=== PATIENT | male | born 1995 | race Two or more races ===

== ENCOUNTER 2024-10-26 09:01 | Emergency (ER) | payer MEDICAID, OTHER ==
[~2024-10-26] VITALS: Ht 180.3 cm; Wt 89.5 kg
--- NOTE | 2024-10-26 09:20 | ED.PDOC ---
History of Present Illness HPI Comments 28-year-old male transferred from [facility] for orthopedics do from right elbow injury. This visit was from ER to ER. Patient reports the he was skateboarding last night at 0000, when he fell and main unknown in his right arm causing elbow pain. An x-ray of the right elbow was done at [facility], with an impression of moderately displaced comminuted/fragmented fracture involving the olecranon. There is an approximately 2.5 cm proximal retraction of the fracture fragment. There is posterior soft tissue swelling. The joint spaces are preserved. Denies chills, fever, N/V/D, SOB, CP. No other associated symptoms, modifiers, recent injuries or sick contacts present at this time. Chief Complaint: Upper Extremity Time Seen by MD: 09:15 Reviewed Notes: Nurses Notes, Director [employer] Notes, Medications, Allergies Allergies: Coded Allergies: NO KNOWN ALLERGIES (Unverified , 10/26/24) Information Source: Patient, Transfer Record, Emergency Med Personnel Mode of Arrival: EMS Severity: Moderate Timing: Hours Duration: Since onset, Hours Prehospital treatment: None Past Medical History PAST MEDICAL HISTORY: Denies Surgical History: Denies all surgeries Family History Family History: Reviewed,noncontributory to illness, Unknown Social History Smoker: Non-Smoker Alcohol: Denies ETOH Use Drugs: Denies Drug Use Lives In: Home Constitutional: reports: others (Right elbow pain); denies: chills, diaphoresis, fatigue, fever, malaise, sweats, weakness EENTM: denies: blurred vision, double vision, ear bleeding, ear discharge, ear drainage, ear pain, ear ringing, eye pain, eye redness, hearing loss, mouth pain, mouth swelling, nasal discharge, nose bleeding, nose congestion, nose pain, photophobia, tearing, throat pain, throat swelling, voice changes, others Respiratory: denies: cough, hemoptysis, orthopnea, SOB at rest, shortness of breath, SOB with excertion, stridor, wheezing, others Cardiovascular: denies: chest pain, dizzy spells, diaphoresis, Dyspnea on exertion, edema, irregular heart beat, left arm pain, lightheadedness, palpitations, PND, syncope, others Gastrointestinal: denies: abdomen distended, abdominal pain, blood streaked bowels, constipated, diarrhea, dysphagia, difficulty swallowing, hematemesis, melena, nausea, poor appetite, poor fluid intake, rectal bleeding, rectal pain, vomiting, others Genitourinary: denies: burning, dysuria, flank pain, frequency, hematuria, incontinence, penile discharge, penile sore, pain, testicle pain, testicle swelling, urgency, others Neurological: denies: dizziness, fainting, headache, left sided numbness, left sided weakness, numbness, paresthesia, pre-existing deficit, right sided numbness, right sided weakness, seizure, speech problems, tingling, tremors, weakness, others Musculoskeletal: denies: back pain, gout, joint pain, joint swelling, muscle pain, muscle stiffness, neck pain, others Integumetry: denies: bruises, change in color, change in hair/nails, dryness, laceration, lesions, lumps, rash, wounds, others Allergic/Immunocompromised: denies: Difficulty Healing, Frequent Infections, Hives, Itching, others Hematologic/Lymphatic: denies: anemia, blood clots, easy bleeding, easy bruising, swollen glands, others Endocrine: denies: excessive hunger, excessive sweating, excessive thirst, excessive urination, flushing, intolerance to cold, intolerance to heat, unexplained weight gain, unexplained weight loss, others Psychiatric: denies: anxiety, bipolar disorder, depression, hopeless, panic disorder, schizophrenia, sleepless, suicidal, others All Other Systems: Reviewed and Negative Physical Exam General Appearance: Moderate Distress, Normal HEENT: Normal ENT Inspection, Pharynx Normal, TMs Normal Neck: Full Range of Motion, Non-Tender, Normal, Normal Inspection Respiratory: Chest Non-Tender, Lungs Clear, No Accessory Muscle Use, No Respiratory Distress, Normal Breath Sounds Cardiovascular: No Edema, No JVD, No Murmur, No Gallop, Normal Peripheral Pulses, Regular Rate/Rhythm Breast Exam: Deferred Gastrointestinal: No Organomegaly, Non Tender, No Pulsatile Mass, Normal Bowel Sounds, Soft Genitalia: Deferred Pelvic: Deferred Rectal: Deferred Extremities: No calf tenderness, Normal capillary refill, Normal range of motion, Non-tender, No pedal edema, Other (Splinted right arm) Musculoskeletal : Apperance: Normal Neurologic: Alert, 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 Was a procedure done?: No Differential Dx Considerations may include: Elbow fracture X-Ray, Labs, Meds, VS Vital Signs Date Time Temp Pulse Resp B/P (MAP) Pulse Ox O2 Delivery O2 Flow Rate FiO2 10/26/24 10:00 91 17 94 Room Air 10/26/24 10:00 98.5 91 16 122/69 (86) 94 98.5 10/26/24 09:13 98.2 70 16 115/72 (86) 98 98.2 Current Medications Medications (Trade) Dose Ordered Sig/Vandana Route Start Time Stop Time Status Last Admin Acetaminophen/ Hydrocodone Bitart ([place] 10/325MG Tab) 1 tab ONCE ONCE PO 10/26/24 11:30 10/26/24 11:31 DC 10/26/24 11:42 Patient alert. Vitals stable. Status post fall landing on his right elbow. Answering questions. No sign of distress. He does have splint in place. Spoke with orthopedic. Continue monitoring. Orthopedic surgeon stated that the patient can be treated as an outpatient. Explained to the patient. Good pulses. Good skin color. Good color of the nailbed. Not in distress. Gave the number of the orthopedic surgeon office. Splint intact. Was given prescription of Motrin. Was told to follow up with his primary care physician. Was told to come back if there is any problem. Time of 1ST Reevaluation: 09:45 Reevaluation 1ST: Unchanged Patient Education/Counseling: Diagnosis, Treatment, Prognosis Family Education/Counseling: No Family Present Departure 1 Departure Time of Disposition: 11:21 Impression: Primary Impression: Elbow fracture, right Qualified Codes: S42.401A - Unspecified fracture of lower end of right humerus, initial encounter for closed fracture Disposition: 01 HOME / SELF CARE / HOMELESS Condition: Good e-Prescriptions Ibuprofen Micronized (MOTRIN TABLET) 600 Mg Tb 600 MG PO TID PRN for 5 Days, #15 TAB *Black box warning-NSAIDS can increase risk of [place] & hypertension, GI irritation, ulceration, bleed, perferation. Do not use post cardiac surgery. Use short duration/lowest effective dose. Prov: LEMUEL ALVARENGA MD 10/26/24 Discharged With: Self Critical Care Note Critical Care Time?: No Stability Stability form required: No Heart Score Heart Score: Heart Score Response (Comments) Value History N/A 0 EKG N/A 0 Age N/A 0 Risk Factors N/A 0 Troponin N/A 0 Total 0 I personally scribed for LEMUEL ALVARENGA MD ([email or web address]) on 10/26/24 at 09:20. Electronically submitted by Yunier Harris ([email or web address]). LEMUEL ALVARENGA MD October 26, 2024 09:20
[2024-10-26] MEDS: HYDROcodone-ACET 10/325MG TAB PO ONE (11:42)
--- NOTE | 2024-10-26 12:03 | DVH ---
XY R ELBOW 3 VIEW XRAY, INDICATION: fx TECHNICAL DATA: Frontal, oblique and lateral views were obtained of the right elbow. COMPARISON: None FINDINGS: Displaced olecranon fracture. Joint spaces are maintained. Alignment at the joint is anatomic. Soft t issues are within normal limits. No joint effusion is demonstrated. IMPRESSION: Displaced olecranon fracture.
[2024-10-26] MEDS ORDERED: IBU600T PO (12:42)
[2024-10-26 12:47] VITALS: BP 121/63; PULSE 67; RESP 16; TEMP 97.7; O2SAT 96
== END 2024-10-26 12:49 | disposition home or self-care (01) ==
LOC: ER 09:01 → EDBD 09:01 → ER 12:48
DX: S52.021A Displaced fracture of olecranon process without intraarticular extension of right ulna, initial encounter for closed fracture (principal); V00.131A Fall from skateboard, initial encounter; Y93.51 Activity, roller skating (inline) and skateboarding; Y92.89 Other specified places as the place of occurrence of the external cause; Y99.8 Other external cause status
CPT/HCPCS: 29105; 73080

== ENCOUNTER 2024-11-04 22:59 | Inpatient (IN) | payer OTHER, MEDICAID ==
[~2024-11-04] VITALS: Ht 180.3 cm; Wt 91.6 kg
[~2024-11-04 22:59] MED LIST: IBU600T PO
[2024-11-05 00:38] LABS: Basophils # (auto) 0 10 ^3/uL (0-0.2); Basophils % (auto) 0.6 % (0.0-2.0); Eosinophils # (auto) 0.6 10 ^3/uL (0-0.8); Eosinophils % (auto) 7.1 % (0.0-7.0); Hematocrit 41.9 % (41.0-53.0); Hemoglobin 14.2 g/dL (13.5-17.5); Lymphocytes # (auto) 3.3 10 ^3/uL (0.4-5.4); Lymphocytes % (auto) 38.6 % (10.0-50.0); Mean Corpuscular Hemoglobin 30.1 pg (28.0-32.0); Mean Corpuscular Hgb Conc. 33.8 g/dL (32.0-36.0); Mean Corpuscular Volume 89.2 fL (80.0-100.0); Monocytes # (auto) 0.7 10 ^3/uL (0-1.3); Monocytes % (auto) 8.4 % (0.0-12.0); Neutrophils # (auto) 3.9 10 ^3/uL (1.6-8.6); Neutrophils % (auto) 45.3 % (37.0-80.0); Nucleated Red Blood Cells % 0.2 %; Platelet Count (auto) 288 10^3/uL (140-450); Red Cell Distribution Width 13.2 % (11.8-14.3); White Blood Cell 8.5 10^3/uL (4.4-10.8)
[2024-11-05 00:46] LABS: Anion Gap 7 (5-15); Carbon Dioxide 28 mmol/L (20-31); Chloride 106 mmol/L (98-107); Sodium 141 mmol/L (136-145)
[2024-11-05 00:47] LABS: Calcium 9.2 mg/dL (8.7-10.4)
[2024-11-05 00:52] LABS: BUN/Creatinine Ratio 11.2 (10.0-20.0); Blood Urea Nitrogen 11 mg/dL (9-23); Glucose 102 mg/dL (74-106)
[2024-11-05 00:56] LABS: INR 1.08 (0.9-1.15); Partial Thromboplastin Time 25.9 SEC (24.5-34.5); Prothrombin Time 11.4 sec (9.3-11.8)
[2024-11-05 01:15] LABS: Urine Bacteria None Seen /hpf (None Seen)
[2024-11-05 01:45] LABS: Urine Blood Negative /uL (Negative); Urine Clarity Clear (Clear); Urine Color Yellow (Yellow); Urine Mucus FEW (None Seen); Urine Protein, UAD Negative (Negative); Urine Specific Gravity 1.027 (1.001-1.035); Urine Squamous Epithelial Cell None Seen /hpf (<5); Urine Urobilinogen 2 mg/dL (Negative); Urine WBC 1 /HPF (0-3); Urine pH 5.5 (5.0-9.0)
--- NOTE | 2024-11-05 01:48 | ED.PDOC ---
Musculoskeletal HPI Comments 28-year-old male brought in by family, referred by Dr. Parson to be admitted for surgery due to a displaced right olecranon fracture sustained 2 weeks ago while skateboarding. Patient is currently in a right upper extremity cast and denies pain. He denies any other symptoms. He was told Dr. Parson we will be performing the surgery this morning. Chief Complaint: Upper Extremity Time Seen by MD: 00:19 Reviewed Notes: Nurses Notes Allergies: Coded Allergies: NO KNOWN ALLERGIES (Unverified , 10/26/24) Home Meds Active Scripts Ibuprofen Micronized (MOTRIN TABLET) 600 Mg Tb, 600 MG PO TID PRN for 5 Days, #15 TAB *Black box warning-NSAIDS can increase risk of [place] & hypertension, GI irritation, ulceration, bleed, perferation. Do not use post cardiac surgery. Use short duration/lowest effective dose. Prov:LEMUEL ALVARENGA MD 10/26/24 Information Source: Patient Mode of Arrival: Ambulatory Past Medical History PAST MEDICAL HISTORY: Denies Surgical History: Denies all surgeries Family History Family History: Reviewed,noncontributory to illness, Unknown Social History Smoker: Non-Smoker Alcohol: Denies ETOH Use Drugs: Denies Drug Use Lives In: Home All Other Systems: Reviewed and Negative (Comprehensive systems review obtained and negative except for what is stated in the HPI.) Physical Exam General Appearance: No Apparent Distress HEENT: Other (Pupils and face symmetric. Moist mucous membranes.) Neck: Full Range of Motion, Normal Inspection Respiratory: Lungs Clear, No Accessory Muscle Use, No Respiratory Distress, Normal Breath Sounds Cardiovascular: No Edema, No JVD, Regular Rate/Rhythm Breast Exam: Deferred Gastrointestinal: Non Tender, Soft Genitalia: Deferred Pelvic: Deferred Rectal: Deferred Extremities: No pedal edema, Other (Right upper extremity cast in place. Extremities otherwise unremarkable.) Neurologic: Alert (Oriented x4), Normal Affect, Normal Mood, Other (Ambulatory) Cerebellar Function: NOT DONE Reflexes: NOT DONE Skin: Dry, Normal Color, Warm Lymphatic: NOT DONE Was a procedure done? Was a procedure done?: No EKG EKG : Comments Sinus rhythm, rate 61, normal intervals, normal axis, possible incomplete right bundle-branch block, upsloping ST elevation in leads V1 through V5 likely representing early repolarization Differential Diagnosis EXT Differential Diagnosis: Fracture Other Differential Diagnosis Arrhythmia, electrolyte abnormality, among others X-Ray, Labs, Meds, VS Vital Signs Date Time Temp Pulse Resp B/P (MAP) Pulse Ox O2 Delivery O2 Flow Rate FiO2 11/05/24 01:39 56 20 97 Room Air 11/05/24 01:39 98.1 56 20 116/68 (84) 97 98.1 11/05/24 00:37 61 11/04/24 23:50 97.5 94 18 144/84 (104) 97 97.5 Lab Test 11/05/24 00:25 Range/Units White Blood Count 8.5 4.4-10.8 10^3/uL Red Blood Count 4.70 4.5-5.90 10^6/uL Hemoglobin 14.2 13.5-17.5 g/dL Hematocrit 41.9 41.0-53.0 % Mean Corpuscular Volume 89.2 80.0-100.0 fL Mean Corpuscular Hemoglobin 30.1 28.0-32.0 pg Mean Corpuscular Hemoglobin Concent 33.8 32.0-36.0 g/dL Red Cell Distribution Width 13.2 11.8-14.3 % Platelet Count 288 140-450 10^3/uL Mean Platelet Volume 7.0 6.9-10.8 fL Neutrophils (%) (Auto) 45.3 37.0-80.0 % Lymphocytes (%) (Auto) 38.6 10.0-50.0 % Monocytes (%) (Auto) 8.4 0.0-12.0 % Eosinophils (%) (Auto) 7.1 H 0.0-7.0 % Basophils (%) (Auto) 0.6 0.0-2.0 % Neutrophils # (Auto) 3.9 1.6-8.6 10 ^3/uL Lymphocytes # (Auto) 3.3 0.4-5.4 10 ^3/uL Monocytes # (Auto) 0.7 0-1.3 10 ^3/uL Eosinophils # (Auto) 0.6 0-0.8 10 ^3/uL Basophils # (Auto) 0 0-0.2 10 ^3/uL Nucleated Red Blood Cells 0.2 % Prothrombin Time 11.4 9.3-11.8 sec Prothrombin Time INR 1.08 0.9-1.15 Activated Partial Thromboplast Time 25.9 24.5-34.5 SEC Urine Color Yellow Yellow Urine Clarity Clear Clear Urine pH 5.5 5.0-9.0 Urine Specific [place] 1.027 1.001-1.035 Urine Protein Negative Negative Urine Ketones Negative Negative Urine Blood Negative Negative /uL Urine Nitrite Negative Negative Urine Bilirubin Negative Negative Urine Urobilinogen 2 H Negative mg/dL Urine Leukocyte Esterase Negative Negative /uL Urine RBC <1 0 - 3 /hpf Urine Microscopic WBC 1 0-3 /HPF Urine Squamous Epithelial Cells None seen <5 /hpf Urine Bacteria None seen None Seen /hpf Urine Mucus Few None Seen Urine Glucose Normal Normal mg/dL Sodium Level 141 136-145 mmol/L Potassium Level 4.0 3.5-5.1 mmol/L Chloride Level 106 98-107 mmol/L Carbon Dioxide Level 28 20-31 mmol/L Anion Gap 7 5-15 Blood Urea Nitrogen 11 9-23 mg/dL Creatinine 0.98 0.700-1.30 mg/dL Glomerular Filtration Rate Calc 108 >90 mL/min BUN/Creatinine Ratio 11.2 10.0-20.0 Serum Glucose 102 74-106 mg/dL Calcium Level 9.2 8.7-10.4 mg/dL PROCEDURE(s): CXRP - CHEST PORTABLE REASON: Preop ORDER NUMBER(s): [id number], ACCESSION NUMBER(s): [id number] CHEST RADIOGRAPH Indication: Preop Technique: Single frontal view of the chest was obtained COMPARISON: None FINDINGS: Lines and Tubes: None Lungs: Clear Pleura: No effusion. No pneumothorax. Cardiomediastinal contours: Unremarkable Bones: Unremarkable IMPRESSION: 1. No acute disease. X-Ray, Labs, Meds, VS Comment 28-year-old male with recent displaced right and olecranon fracture referred by Dr. Parson to be admitted for surgery this morning. Vitals remarkable for BP 144/84 Exam remarkable for right upper extremity cast in place Rhythm strip independently interpreted by me: Sinus rhythm, rate 61, no ectopy. Chest x-ray unremarkable CBC, basic metabolic panel, coag panel and UA unremarkable Patient denied any pain in the ED. He was placed NPO. Plan is to admit the patient for surgery in the morning. Time of 1ST Reevaluation: :47 Reevaluation 1ST: Unchanged Patient Education/Counseling: Diagnosis, Treatment Family Education/Counseling: No Family Present Departure 1 Departure Time of Disposition: :47 Impression: Primary Impression: Olecranon fracture Qualified Codes: S52.021D - Displaced fracture of olecranon process without intraarticular extension of right ulna, subsequent encounter for closed fracture with routine healing Disposition: ADMITTED INPATIENT Admit to: Med Surg Condition: Stable Critical Care Note Critical Care Time?: No Stability Stability form required: No Heart Score Heart Score: Heart Score Response (Comments) Value History N/A 0 EKG N/A 0 Age N/A 0 Risk Factors N/A 0 Troponin N/A 0 Total 0 MARIA ISABEL MORALES MD Nov 05, 2024 01:48
--- NOTE | 2024-11-05 02:02 | DVH ---
CHEST RADIOGRAPH Indication: Preop Technique: Single frontal view of the chest was obtained COMPARISON: None FINDINGS: Lines and Tubes: None Lungs: Clear Pleura: No effusion. No pneumothorax. Cardiomediastinal contours: Unremarkable Bones: Unremarkable IMPRESSION: 1. No acute disease.
[2024-11-05] MEDS ORDERED: ONDANSETRON HCL 4 MG/2 ML VIAL IV PRN (03:45)
[2024-11-05] MEDS ORDERED: ACETAMINOPHEN 325 MG TAB PO PRN (03:45)
[2024-11-05] MEDS ORDERED: MORPHINE SULFATE INJ 2 MG/ml SYRG IV PRN (03:45)
[2024-11-05 04:00] VITALS: PULSE 53; RESP 11; O2SAT 97
[2024-11-05] MEDS: D5W/SOD CHL 0.45% 1,000 ML IV ONE (04:19)
--- NOTE | 2024-11-05 04:43 | DVHHP2 ---
History of Present Illness Reason for Visit: Right arm pain History of Present Illness 28-year-old male presents for evaluation of right arm pain. Patient staineda right olecranon fracture in two weeks ago while skateboarding. He was seen by his orthopedic surgeon yesterday and advised him to present for surgery this morning. Past Medical History Denies Past Surgical History Denies Family History Noncontributory Smoke: No ALCOHOL: none Drugs: None Lives: with Family Review of Systems Review of Systems Review of systems are currently negative otherwise addressed in HPI. Allergies: Coded Allergies: NO KNOWN ALLERGIES (Unverified , 10/26/24) Medications Current Medications Medications Dose Ordered Sig/Vandana Route Start Time Stop Time Status Last Admin Dose Admin Acetaminophen/ Hydrocodone Bitart 1 tab Q4HP PRN PO 11/05/24 03:45 Ondansetron HCl 4 mg Q4HP PRN IV 11/05/24 03:45 Acetaminophen 650 mg Q6HP PRN PO 11/05/24 03:45 Morphine Sulfate 2 mg Q4HPRN PRN IV 11/05/24 03:45 Exam Vital Signs Vital Signs Date Time Temp Pulse Resp B/P (MAP) Pulse Ox O2 Delivery O2 Flow Rate FiO2 11/05/24 04:00 53 11 97 Room Air* 0 21 11/05/24 03:59 97.9 108/72 (84) 97.9 Exam Gen: 28-year-old male in no apparent distress Skin: Warm, dry, normal color and texture, no rash. HEENT: Normocephalic atraumatic, mucous membranes moist and pink. Neck: Cervical and supraclavicular nodes normal without enlargement, trachea is midline, thyroid gland is normal without masses. Pulmonary: Clear to auscultation and percussion bilaterally. Cardiac: Regular rate and rhythm. No murmur Abdomen: Soft, nontender, nondistended, bowel sounds present all 4 quadrants, no guarding, no rigidity, no organomegaly. Extremities: No cyanosis, clubbing, right arm in a cast with positive distal pulses. Neuro: Cranial nerves II through XII grossly intact, normal affect and speech, no focal motor deficits. Labs/Xrays ORDERING PHYSICIAN: LEMUEL ALVARENGA MD PROCEDURE(s): RELB3 - R ELBOW 3 VIEW XRAY REASON: fx ORDER NUMBER(s): [id number], ACCESSION NUMBER(s): [id number] XY R ELBOW 3 VIEW XRAY, INDICATION: fx TECHNICAL DATA: Frontal, oblique and lateral views were obtained of the right elbow. COMPARISON: None FINDINGS: Displaced olecranon fracture. Joint spaces are maintained. Alignment at the joint is anatomic. Soft tissues are within normal limits. No joint effusion is demonstrated. IMPRESSION: Displaced olecranon fracture. Labs Test 11/05/24 00:25 Range/Units White Blood Count 8.5 4.4-10.8 10^3/uL Red Blood Count 4.70 4.5-5.90 10^6/uL Hemoglobin 14.2 13.5-17.5 g/dL Hematocrit 41.9 41.0-53.0 % Mean Corpuscular Volume 89.2 80.0-100.0 fL Mean Corpuscular Hemoglobin 30.1 28.0-32.0 pg Mean Corpuscular Hemoglobin Concent 33.8 32.0-36.0 g/dL Red Cell Distribution Width 13.2 11.8-14.3 % Platelet Count 288 140-450 10^3/uL Mean Platelet Volume 7.0 6.9-10.8 fL Neutrophils (%) (Auto) 45.3 37.0-80.0 % Lymphocytes (%) (Auto) 38.6 10.0-50.0 % Monocytes (%) (Auto) 8.4 0.0-12.0 % Eosinophils (%) (Auto) 7.1 H 0.0-7.0 % Basophils (%) (Auto) 0.6 0.0-2.0 % Neutrophils # (Auto) 3.9 1.6-8.6 10 ^3/uL Lymphocytes # (Auto) 3.3 0.4-5.4 10 ^3/uL Monocytes # (Auto) 0.7 0-1.3 10 ^3/uL Eosinophils # (Auto) 0.6 0-0.8 10 ^3/uL Basophils # (Auto) 0 0-0.2 10 ^3/uL Nucleated Red Blood Cells 0.2 % Prothrombin Time 11.4 9.3-11.8 sec Prothrombin Time INR 1.08 0.9-1.15 Activated Partial Thromboplast Time 25.9 24.5-34.5 SEC Urine Color Yellow Yellow Urine Clarity Clear Clear Urine pH 5.5 5.0-9.0 Urine Specific [place] 1.027 1.001-1.035 Urine Protein Negative Negative Urine Ketones Negative Negative Urine Blood Negative Negative /uL Urine Nitrite Negative Negative Urine Bilirubin Negative Negative Urine Urobilinogen 2 H Negative mg/dL Urine Leukocyte Esterase Negative Negative /uL Urine RBC <1 0 - 3 /hpf Urine Microscopic WBC 1 0-3 /HPF Urine Squamous Epithelial Cells None seen <5 /hpf Urine Bacteria None seen None Seen /hpf Urine Mucus Few None Seen Urine Glucose Normal Normal mg/dL Sodium Level 141 136-145 mmol/L Potassium Level 4.0 3.5-5.1 mmol/L Chloride Level 106 98-107 mmol/L Carbon Dioxide Level 28 20-31 mmol/L Anion Gap 7 5-15 Blood Urea Nitrogen 11 9-23 mg/dL Creatinine 0.98 0.700-1.30 mg/dL Glomerular Filtration Rate Calc 108 >90 mL/min BUN/Creatinine Ratio 11.2 10.0-20.0 Serum Glucose 102 74-106 mg/dL Calcium Level 9.2 8.7-10.4 mg/dL Assessment/Plan Assessment/Plan Assessment Olecranon fracture Plan Admit the patient to [facility] to the hospitalist Orthopedic consult NPO Pain management Continue treatment per orders Plan discussed with: Patient My Orders Orders - RICHIE CALDWELL Procedure Category Date Status Time Type And Screen BBK 11/05/24 In Process 03:34 *Cons[address] Hernandez CONS 11/05/24 Transmitted Blank 03:34 Admit ADMIT 11/05/24 Transmitted 03:34 Hydrocodone-Acet PHA 11/05/24 In Process 5/325mg Tab ([place] 03:45 Ondansetron Hcl PHA 11/05/24 In Process (Zofran) 03:45 Condition: Stable [place] 11/05/24 In Process 03:34 Acetaminophen Tablet PHA 11/05/24 In Process (Tylenol Tablet) 03:45 Bedrest With Bathroom [place] 11/05/24 In Process Privileg 03:34 Morphine Sulfate PHA 11/05/24 In Process Injection 03:45 Date of Service: Nov 05, 2024 Billing Provider: RICHIE CALDWELL Common Visit Codes: [id number] INP/OBS CARE (MOD) RICHIE CALDWELL [facility] Nov 05, 2024 04:43
[2024-11-05 08:16] VITALS: BP 125/68; PULSE 54; RESP 16; TEMP 97.6; O2SAT 98
[2024-11-05] MEDS ORDERED: MIDAZOLAM HCL 2MG/2ML 2ml VIAL (1mg/ml) ONE ×2 (10:39→12:51)
[2024-11-05] MEDS ORDERED: HYDROmorphone HCL 2 MG/ML VL/or syr ONE (10:39)
[2024-11-05] MEDS ORDERED: LIDOCAINE 2% (LOCAL ANESTH.) PF 5ml SDV ONE (10:39)
[2024-11-05] MEDS ORDERED: fentaNYL CITRATE 100 MCG/2 ML VL ONE (10:39)
[2024-11-05] MEDS ORDERED: GLYCOPYRROLATE 0.2 MG/ML 1ML VIAL ONE (10:39)
[2024-11-05] MEDS ORDERED: ONDANSETRON HCL 4 MG/2 ML VIAL ONE (10:39)
[2024-11-05] MEDS ORDERED: PROPOFOL 10 MG/ML 20 ML IV ONE (10:39)
[2024-11-05] MEDS ORDERED: KETOROLAC TROMETH 30 MG/ML 1ML VIAL ONE (10:39)
[2024-11-05] MEDS ORDERED: DexAMETHasone SOD PHOS 10MG/1ML VIAL INJ ONE (10:39)
--- NOTE | 2024-11-05 10:43 | ECG ---
[facility] Test Date: 2024-11-05 Test Time: 00:37:34 Pat Name: CORWIN GAMINO Department: ED Room: [address] [place] [address] A Gender: M [facility] Nurse: DIANNA : 1995 Requested By: MARIA ISABEL GUPTA Order Number: [id number] Reading MD: Agustín Steele Measurements Intervals [place] Rate: 61 P: 76 [place]: 146 QRS: 69 QRSD: 99 T: 60 QT: 417 QTc: 420 Interpretive Statements Sinus rhythm ST elev, probable normal early repol pattern Electronically Signed On 11-05-2024 15:00:08 PDT by Agustín Steele Please click the below link to view image of tracing.
[2024-11-05] MEDS ORDERED: KETAMINE 50mg/ML 1ml syringe ONE ×2 (11:04→12:56)
[2024-11-05] MEDS ORDERED: ROCURONIUM 10MG/ML 10ML VIAL IV ONE (11:25)
[2024-11-05] MEDS ORDERED: ceFAZolin 2 GM/D5W50ml 50 ML IV ONE (12:04)
--- NOTE | 2024-11-05 12:37 | DVHHP2 ---
History Allergies: Coded Allergies: NO KNOWN ALLERGIES (Unverified , 10/26/24) Chief Complaint: Right elbow fracture, olecranon Present Illness(Onset/Duration Mechanincal fal from skateboard on 11/03/24, no hitting head, no altered mental status Past Surgical History none Medications none Physical Exam Skin intact EENT NCAT Chest and Lungs CTA B Heart RRR neg MRG Abdomen NBS ND NT Extremities Right eblow, moderate swelling, decreased sensation ulnar n distribution, skin intact Vital Signs Vital Signs Date Time Temp Pulse Resp B/P (MAP) Pulse Ox O2 Delivery O2 Flow Rate FiO2 11/05/24 08:16 Room Air* 0 21 11/05/24 08:16 97.6 54 16 125/68 (87) 98 97.6 Impressions/Description Right elbow olecranon fracture Plan Surgery open reduction internal fixation of right elbow olecranon fracture LACY JONES MD Nov 05, 2024 12:37
--- NOTE | 2024-11-05 13:47 | DVHPN2 ---
Progress Note Date Seen: Nov 05, 2024 Medical Necessity Reason Pt with a Central, PICC or Fol: No Subjective Patient reports: No new complaints Review of Systems: HEENT:Normal, CVS:Normal, RESPIRATORY:Normal, GI:Normal, :Normal, MSK:Normal, NEURO:Normal Objective vital signs Vital Sign Date Time Temp Pulse Resp B/P (MAP) Pulse Ox O2 Delivery O2 Flow Rate FiO2 11/05/24 08:16 Room Air* 0 21 11/05/24 08:16 97.6 54 16 125/68 (87) 98 97.6 medications Current Medications Medications Dose Ordered Sig/Vandana Route Start Time Stop Time Status Last Admin Dose Admin Acetaminophen/ Hydrocodone Bitart 1 tab Q4HP PRN PO 11/05/24 03:45 Ondansetron HCl 4 mg Q4HP PRN IV 11/05/24 03:45 Acetaminophen 650 mg Q6HP PRN PO 11/05/24 03:45 Morphine Sulfate 2 mg Q4HPRN PRN IV 11/05/24 03:45 Examination: GENERAL:Normal, HEENT:Normal, NECK:Normal, LUNGS:Normal, CVS:Normal, ABDOMEN:Normal, MSK:Normal, MSK:Abnormal (rigth arm sling), SKIN:Normal, NEURO:Normal, :Normal laboratory and microbiology Laboratory Tests 11/05/24 00:25 Test 11/05/24 00:25 Range/Units Serum Glucose 102 74-106 mg/dL Problem List/Assessment/Plan Problem List/Assessment/Plan #1 right olecranon/elbow fracture: surg today Plan discussed with: Other (rn) Date of Service: Nov 05, 2024 Billing Provider: RICHIE DYSON MD Common Visit Codes: [id number] INP/OBS CARE(HIGH) RICHIE DYSON MD Nov 05, 2024 13:47
[2024-11-05] MEDS: BUPIVACAINE 0.25% INJ 50ML VIAL ONE (13:49)
[2024-11-05] MEDS ORDERED: SUGAMMADEX 200mg/2ml Vial (100MG/ML) IV ONE ×2 (13:52→16:20)
--- NOTE | 2024-11-05 14:01 | DVHOP2 ---
Operative Report - 2 Report Details Date: 11/05/24 Preop Diagnosis: Right olecranon fracture Postop Diagnosis: same Surgeon: Manoj Jones MD Records Management Analyst: none Anesthesiologist: Dr Tang Anesthesia: General Drains: none Implant: cannulated screw and merseline tape Consent: The patient was informed of the risks and benefits of the procedure. These include but are not limited to complications of anesthesia, postoperative infection, incomplete relief of symptoms, recurrence of symptoms, damage to blood vessels, nerves and tendons, deep venous thrombosis, pulmonary embolism and possible need for repeat surgery in the future. Complications: none Estimated Blood Loss: 10 cc Fluids: 500 cc crystalloid Findings: above, displaced olecranon fracture Indications for Surgery: Displaced olecranon fracture Name of Procedure Performed Open reduction internal fixation of RIGHT olecranon fracture and decompression of ulnar nerve Procedure Details Procedure Details: Patient brought in the operating room given Ancef 2 g IV piggyback preoperatively sterile prep and drape right upper extremity after placement of nonsterile tourniquet right arm time-out performed comprehension right side correct site open reduction internal fixation of olecranon fracture and decompression ulnar nerve correct procedures after review of operative consent history and physical my initials on right elbow exsanguination with Esmarch tourniquet elevated to 250 mm Hg curvilinear incision made posterior aspect of the elbow medial site of curve on the ulnar nerve side sharp dissection through skin down to deep fascia deep fascia divided 1st an ulnar nerve decompression was performed to confirm lack of abnormal position of ulnar nerve as well as to decompress the ulnar nerve as the patient was having ulnar nerve symptoms preoperatively then irrigation and curettage of fracture sites getting rid of fracture hematoma looking at joint surface seemed to be pristine transverse drill hole made in the distal ulna proximal to fracture site and down Mersilene tape placed across this drill hole then a 2nd drill hole was placed in the posterior aspect from posterior to anterior unicortical four the reduction clamp then the elbow was extended and a reduction clamp placed distal to tip of the ol ecranon and through the shaft drill hole to reduce the fracture then a cannulated screw wire was placed across the fracture drilled and placement of the cannulated screw self-tapping with a washer the Mersilene tape was placed underneath the triceps tendon and underneath the washer in a figure-eight fashion C-arm fluoro taken showing anatomic alignment of fracture elbow flexion and extended showing no gapping of olecranon fracture deep fascia closed with simple interrupted 0 Vicryl sutures subcutaneous 2-0 Vicryl the fascia over the ulnar nerve was left decompressed are non repaired tourniquet let down excellent hemostasis noted subcutaneous closure 2-0 Vicryl skin french fluffs ABD loose Kevin wrap long-arm posterior splint further Kevin wrap no drains specimens complications Specimen: none Condition Stable Disposition Home MANOJ JONES MD Nov 05, 2024 14:01
[2024-11-05 14:13] VITALS: O2SAT 100
[2024-11-05] MEDS ORDERED: ONDANSETRON HCL 4 MG/2 ML VIAL IV ONE (14:30)
[2024-11-05] MEDS ORDERED: HYDROmorphone HCL 2 MG/ML VL/or syr IV PRN (14:30)
--- NOTE | 2024-11-05 15:05 | DVH ---
FLUOROSCOPY TIME: 2.16 TECHNIQUE: Intraoperative radiographs of the right elbow were obtained. COMPARISON: None FINDINGS: Refer to intraoperative report for further evaluation. IMPRESSION: Refer to intraoperative report for further evaluation.
[2024-11-05 16:15] VITALS: BP 125/86; PULSE 61; RESP 18; TEMP 97.8; O2SAT 95
[2024-11-05] MEDS: D5W/SOD CHL 0.45%/KCL 20MEQ 1,000 ML IV SCH (17:12)
[2024-11-05 20:00] VITALS: RESP 18
[2024-11-05] MEDS: HYDROcodone-ACET 5/325MG TAB PO PRN (20:07)
[2024-11-05 21:00] VITALS: BP 117/81; PULSE 82; RESP 19; TEMP 97.8; O2SAT 95
[2024-11-06 00:56] VITALS: BP 123/75; PULSE 82; RESP 17; TEMP 97.7; O2SAT 94
[2024-11-06 05:00] VITALS: BP 126/69; PULSE 72; RESP 18; TEMP 97.6; O2SAT 97
[2024-11-06 08:00] VITALS: PULSE 81; RESP 17; O2SAT 97
[2024-11-06 09:00] VITALS: BP 133/66; PULSE 81; RESP 17; TEMP 97.6; O2SAT 97
--- NOTE | 2024-11-06 10:02 | DVHDS2 ---
Discharge Summary Date of Admission Nov 05, 2024 at 03:34 Date of Discharge: Nov 06, 2024 Labs/Diagnostic Data: Laboratory Results Test 11/05/24 00:25 White Blood Count 8.5 10^3/uL (4.4-10.8) Red Blood Count 4.70 10^6/uL (4.5-5.90) Hemoglobin 14.2 g/dL (13.5-17.5) Hematocrit 41.9 % (41.0-53.0) Mean Corpuscular Volume 89.2 fL (80.0-100.0) Mean Corpuscular Hemoglobin 30.1 pg (28.0-32.0) Mean Corpuscular Hemoglobin Concent 33.8 g/dL (32.0-36.0) Red Cell Distribution Width 13.2 % (11.8-14.3) Platelet Count 288 10^3/uL (140-450) Mean Platelet Volume 7.0 fL (6.9-10.8) Neutrophils (%) (Auto) 45.3 % (37.0-80.0) Lymphocytes (%) (Auto) 38.6 % (10.0-50.0) Monocytes (%) (Auto) 8.4 % (0.0-12.0) Eosinophils (%) (Auto) 7.1 % (0.0-7.0) Basophils (%) (Auto) 0.6 % (0.0-2.0) Neutrophils # (Auto) 3.9 10 ^3/uL (1.6-8.6) Lymphocytes # (Auto) 3.3 10 ^3/uL (0.4-5.4) Monocytes # (Auto) 0.7 10 ^3/uL (0-1.3) Eosinophils # (Auto) 0.6 10 ^3/uL (0-0.8) Basophils # (Auto) 0 10 ^3/uL (0-0.2) Nucleated Red Blood Cells 0.2 % Prothrombin Time 11.4 sec (9.3-11.8) Prothrombin Time INR 1.08 (0.9-1.15) Activated Partial Thromboplast Time 25.9 SEC (24.5-34.5) Urine Color Yellow (Yellow) Urine Clarity Clear (Clear) Urine pH 5.5 (5.0-9.0) Urine Specific Fleming 1.027 (1.001-1.035) Urine Protein Negative (Negative) Urine Ketones Negative (Negative) Urine Blood Negative /uL (Negative) Urine Nitrite Negative (Negative) Urine Bilirubin Negative (Negative) Urine Urobilinogen 2 mg/dL (Negative) Urine Leukocyte Esterase Negative /uL (Negative) Urine RBC <1 /hpf (0 - 3) Urine Microscopic WBC 1 /HPF (0-3) Urine Squamous Epithelial Cells None seen /hpf (<5) Urine Bacteria None seen /hpf (None Seen) Urine Mucus Few (None Seen) Urine Glucose Normal mg/dL (Normal) Sodium Level 141 mmol/L (136-145) Potassium Level 4.0 mmol/L (3.5-5.1) Chloride Level 106 mmol/L (98-107) Carbon Dioxide Level 28 mmol/L (20-31) Anion Gap 7 (5-15) Blood Urea Nitrogen 11 mg/dL (9-23) Creatinine 0.98 mg/dL (0.700-1.30) Glomerular Filtration Rate Calc 108 mL/min (>90) BUN/Creatinine Ratio 11.2 (10.0-20.0) Serum Glucose 102 mg/dL (74-106) Calcium Level 9.2 mg/dL (8.7-10.4) Other Laboratory Tests 11/05/24 00:25 Brief Hx & Hospital Course: see dictated note Condition at Discharge: Fair Final Diagnosis/Problems List right elbow fracture Discharge Disposition: Home Discharge Instruct/Medications Diet: Regular Activity: No Restrictions, As Tolerated Follow Up/Referral: schedule appt with orth in 2 wks Medications: script in chart Discharge Statement: "Patient was advised to return to the ER or call 911 if any headaches, dizziness, shortness of breath, chest pain, abdominal pain, bleeding, fevers, or worsening of medical condition. Patient was counseled about treatment plan, medications, possible side effects, patientverbalized understanding. All questions were answered to the best of my ability. This discharge took greater then 30 minutes in planning, reviewing documentation, counseling the patient, and discussing with other team members." ASSESSMENT ASSESSMENT Assessment right elbow fracture Date of Service: Nov 06, 2024 Billing Provider: RICHIE DYSON MD Common Visit Codes: 33608-EWE/OBS DISCH DAY >30min RICHIE DYSON MD Nov 06, 2024 10:02
--- NOTE | 2024-11-06 10:08 | DVHDS ---
DATE OF DISCHARGE: 11/06/2024 HISTORY OF PRESENT ILLNESS: The patient is a 28-year-old gentleman who was admitted after he had olecranon fracture while skateboarding. HOSPITAL COURSE: The patient was seen in Orthopedic consult by Dr. Quinn. The patient underwent surgery for a displaced olecranon fracture with open reduction internal fixation on 11/05/2024. The patient is currently doing well and will be discharged home to be on [place] p.r.n[employer] for pain. He will follow up with Orthopedics in the next 2 weeks. FINAL DIAGNOSIS: Right olecranon fracture status post open reduction and internal fixation. Time spent in discharge planning and review of plan with the patient and nursing was 36 minutes. MD CARRI Leon/KARAN TID: [id number] RECEIPT: [id number]
[2024-11-06 10:48] VITALS: BP 133/66; PULSE 81; RESP 17; TEMP 97.6; O2SAT 97
== END 2024-11-06 11:07 | disposition home or self-care (01) | DRG 512 ==
LOC: ER 23:05 → OVERFLOW 11-05 03:34 → WEST WING 11-05 15:54
PROVIDERS: ADMIT Internal Medicine; ATTEND Internal Medicine
PROC: 01N40ZZ Release Ulnar Nerve, Open Approach (ICD-10-PCS; 2024-11-05)
PROC: 0PSK04Z Reposition Right Ulna with Internal Fixation Device, Open Approach (ICD-10-PCS; principal; 2024-11-05 12:32)
DX: S52.021A Displaced fracture of olecranon process without intraarticular extension of right ulna, initial encounter for closed fracture (principal); Y93.51 Activity, roller skating (inline) and skateboarding; Y93.89 Activity, other specified; Y92.89 Other specified places as the place of occurrence of the external cause; Y99.8 Other external cause status; Z79.899 Other long term (current) drug therapy
CPT/HCPCS: 36415; 71045; 73070; 76000; 80048; 81001; 85025; 85610; 85730; 86850; 86900; 86901; 93005; G0378; J1100; J1885; J2003; J2250; J2405; J2704; J3490